=== PATIENT | female | born 1975 | race Caucasian/White ===

== ENCOUNTER 2018-04-10 23:03 | Emergency (ER) | payer SELFPAY ==
[2018-04-10 23:03] VITALS: BMI 23.6
[2018-04-10 23:11] VITALS: PULSE 90; RESP 18; TEMP 98.1
--- NOTE | 2018-04-10 23:24 | ED PDOC ---
HPI: CCC, URI, Sore Throat Time Seen by Provider: 04/10/18 23:13 Chief Complaint (Nursing): Cough, Cold, Congestion Chief Complaint (Provider): Cough, Cold, Congestion History Per: Patient History/Exam Limitations: no limitations Onset/Duration Of Symptoms: Days (x 5) Current Symptoms Are (Timing): Still Present Location Of Pain: Sinus/es, Diffuse Myalgias, Headache Associated Symptoms: Cough, Sinus Drainage, Nasal Congestion, Vomiting Additional Complaint(s): 42 year old female presents to the ED with cough, nasal congestion, headache, body aches and posttussive vomiting for 5 days. Patient reports taking Tylenol Sinus with no relief. Denies possibility of as well as diarrhea, abdominal pain and vomiting. PMD: Dr. Melani Rodriguez Past Medical History Reviewed: Historical Data, Nursing Documentation, Vital Signs Vital Signs: Last Vital Signs Temp 98.1 F 04/10/18 23:07 Pulse 90 04/10/18 23:07 Resp 18 04/10/18 23:07 BP 127/85 04/10/18 23:07 Pulse Ox 99 04/10/18 23:07 - Medical History PMH: No Chronic Diseases Denies: Depression - Surgical History Surgical History: No Surg Hx - Family History Family History: States: Unknown Family Hx - Home Medications Home Medications: Ambulatory Orders Medication Instructions Recorded Benzonatate [Tessalon Perles] 100 mg PO BID PRN 5 Days sgl 04/10/18 Ibuprofen [Motrin] 600 mg PO TID 7 Days tab 04/10/18 - Allergies Allergies/Adverse Reactions: Allergies Allergy/AdvReac Type Severity Reaction Status Date / Time No Known Allergies Allergy Verified 03/24/16 15:56 Review of Systems ROS Statement: Except As Marked, All Systems Reviewed And Found Negative Constitutional: Positive for: Other (body aches). Negative for: Fever ENT: Positive for: Nose Congestion Respiratory: Positive for: Cough Gastrointestinal: Positive for: Vomiting (posttussive). Negative for: Abdominal Pain, Diarrhea Neurological: Positive for: Headache Physical Exam - Reviewed Nursing Documentation Reviewed: Yes Vital Signs Reviewed: Yes - Physical Exam Appears: Positive for: Non-toxic, No Acute Distress Head Exam: Positive for: ATRAUMATIC, NORMAL INSPECTION, NORMOCEPHALIC Skin: Positive for: Normal Color, Warm, Dry. Negative for: Rash Eye Exam: Positive for: EOMI, Normal appearance, PERRL ENT: Positive for: Nasal Congestion, Pharyngeal Erythema (mild ). Negative for: Tonsillar Exudate (or discharge) Neck: Positive for: Normal, Painless ROM, Supple Cardiovascular/Chest: Positive for: Regular Rate, Rhythm. Negative for: Murmur Respiratory: Positive for: Normal Breath Sounds. Negative for: Respiratory Distress Gastrointestinal/Abdominal: Positive for: Normal Exam, Soft. Negative for: Tenderness Back: Positive for: Normal Inspection (cupping russell present along length of back ) Extremity: Positive for: Normal ROM (upper and lower ). Negative for: Deformity Neurologic/Psych: Positive for: Alert, Oriented. Negative for: Motor/Sensory Deficits - ECG O2 Sat by Pulse Oximetry: 99 (RA) Pulse Ox Interpretation: Normal - Progress ED Course And Treament: 2322: Stable. AAOx3. Pain controlled. Likely uri. Will rx motrin and tesalon pearles. Medical Decision Making Medical Decision Makin:21 Initial Plan: --Tessalon Perles 100 mg PO --Motrin 600 mg PO 23:23 --Patient is stable and will be discharged with prescriptions for Tessalon Perles and Motrin. Return if symptoms persist or worsen. Follow up with PMD. Scribe Attestation: Documented by Michelle Serrano, acting as a scribe for Oral Morrison MD Provider Scribe Attestation: All medical record entries made by the Scribe were at my direction and personally dictated by me. I have reviewed the chart and agree that the record accurately reflects my personal performance of the history, physical exam, medical decision making, and the department course for this patient. I have also personally directed, reviewed, and agree with the discharge instructions and disposition. Disposition - Clinical Impression Clinical Impression: URI (upper respiratory infection) - Patient ED Disposition Is Patient to be Admitted: No Counseled Patient/Family Regarding: Diagnosis, Need For Followup, Rx Given - Disposition Referrals: [facility] [place] [Outside] - 04/11/18 Disposition: Routine/Home Disposition Time: 23:23 Condition: STABLE Additional Instructions: Return if not better in 3 days. Prescriptions: Benzonatate [Tessalon Perles] 100 mg PO BID PRN 5 Days sgl PRN Reason: Cough Ibuprofen [Motrin] 600 mg PO TID 7 Days tab Instructions: Viral Upper Respiratory Infection, Adult (DC) Forms: [facility] ED School/Work Excuse Print Language: FRISIAN
[2018-04-11 00:12] VITALS: BP 136/86; O2SAT 100
== END 2018-04-11 00:05 | disposition home or self-care (01) ==
LOC: H.ER 23:03
DX: J06.9 Acute upper respiratory infection, unspecified (principal)